=== PATIENT | male | born 1960 | race Caucasian/White ===

== ENCOUNTER 2023-05-07 05:49 | Outpatient (CLI) | payer BC ==
[~2023-05-07] VITALS: Ht 175.3 cm; Wt 80.7 kg
[~2023-05-07 05:49] MED LIST: CALC625T66 PO; GBPN300C PO; HYDR-3583 PO; MULT-963 PO; VITA1CAP59 PO; ZINC50TA49 PO
[2023-05-07] MEDS ORDERED: HYDR-700 PO (13:11)
[2023-05-07] MEDS ORDERED: PSEU-182 PO (13:11)
[2023-05-07] MEDS ORDERED: CETI10CA PO (13:11)
[2023-05-07] MEDS ORDERED: PANT40TA52 PO (13:11)
== END 2023-05-07 13:29 | disposition home or self-care (01) ==
LOC: PREOP 05:49
PROVIDERS: ATTEND Internal Medicine
DX: Z01.818 Encounter for other preprocedural examination (principal)

== ENCOUNTER 2023-05-16 09:07 | Day surgery (SDC) | payer BC, OTHER ==
--- NOTE | 2023-05-03 05:39 | HISTORY AND PHYSICAL ---
PANENDOSCOPY HISTORY AND PHYSICAL HISTORY OF PRESENT ILLNESS: The patient is a 62-year-old white male referred by Dr. العلي for screening colonoscopy. He reports one other colonoscopy a little over 11 years ago, but he believes it was unremarkable. For the past 3-4 months, he has been having increased problems with heartburn despite pantoprazole. He has had some intermittent dysphagia to solids with this and has no past history of EGD evaluation. He reports a history of dry mouth. He does take hydroxyzine for itching of the scalp at night on a regular basis. He reports that he stopped the hydroxyzine, although he substituted Zyrtec while he did this, though he has not been off of the antihistamine therapy. He reports that he had been on hydroxyzine for some time prior to noting dry mouth. He denies any associated dry eye symptoms. While it is worst in the morning, he notes it throughout the day. He has had no sores reported in the oral cavity. Denies change in weight, melena or bright red blood per rectum. He denies any issues with constipation or diarrhea. MEDICATIONS: On admission include hydroxyzine 25 mg at bedtime and pantoprazole 40 mg daily. PAST SURGICAL HISTORY: He has had history of prostatectomy for prostate cancer a number of years ago and hiatal hernia repair. FAMILY HISTORY: He is not aware of any family history for GI tract malignancy. Mother had heart disease and diabetes. SOCIAL HISTORY: He reports no past smoking history and no significant alcohol consumption. and employed. REVIEW OF SYSTEMS: CONSTITUTIONAL: Denies night sweats, chills, fever or change in weight. Does note chronic scalp itching without dandruff. GASTROINTESTINAL: As noted in the HPI. PULMONARY: Denies cough, wheezing or shortness of breath. CARDIOVASCULAR: Denies chest pain, orthopnea, PND, or pedal edema. PHYSICAL EXAMINATION: HEENT: Unremarkable. The patient was chewing gum. Mucous membranes were moist. No oral lesions noted. Tongue was a little bit red without exudates. Dentition good. CHEST: Clear to auscultation. CARDIOVASCULAR: Reveals regular rate and rhythm without murmur, S3, or S4. ABDOMEN: Soft, supple without mass, organomegaly, or tenderness. EXTREMITIES: No cyanosis, clubbing or edema. ASSESSMENT AND PLAN: The patient is being set up for screening colonoscopy as well as diagnostic EGD due to history of reflux with dysphagia, refractory to proton pump inhibitor therapy. Prep instructions were given and questions were answered. The patient is to avoid nonsteroidal medication. In regards to complaints of dry mouth, he was told to hold all antihistamines for 2 weeks. If this continues to be a problem for him despite holding the histamine therapy, he is to return to see Dr. العلي for further investigation. I thank you for the referral of this pleasant gentleman. Job ID: [id number] DocumentID: [id number] Dictated Date: 05/01/2023 14:57:18 Health Care Law Specialist Date: 05/01/2023 15:36:00 Dictated By: JAGJIT HORNER MD
[~2023-05-16] VITALS: Ht 175.3 cm; Wt 80.7 kg
[~2023-05-16 09:07] MED LIST changes: +CETI10CA PO; +HYDR-700 PO; +PANT40TA52 PO; +PSEU-182 PO
--- NOTE | 2023-05-16 09:10 | Pre-Op Note & Conscious Sedat ---
Pre-Operative Progress Note Date H&P Reviewed: May 16, 2023 Time H&P Reviewed: 09:09 History & Physical: H&P Reviewed, Patient Examed, No changes noted Pre-Op Diagnosis: screening colon Gerd with dysphagia Moderate Sedation PreProcedure ASA Score 2 Airway Lungs Heart ASA score ASA 1: a normal healthy patient ASA 2: a patient with a mild systemic disease (mid diabetes, controlled hypertension, obesity ASA 3: a patient with a severe systemic disease that limits activity (angina, COPD, prior Myocardial infarction) ASA 4: a patient with an incapacitating disease that is a constant threat to life (CHF, renal failure) ASA 5: a moribund patient not expected to survive 24 hrs. (ruptured aneurysm) ASA 6: a declared brain- patient whose organs are being harvested. For emergent operations, add the letter E after the classification Mallampati Classification Grade 2 Sedation Plan Analgesia, Amnesia, Plan communicated to team members, Discussed options with patient/fam, Discussed risks with patient/fam The patient is an appropriate candidate to undergo the planned procedure, sedation, and anesthesia. The patient immediately re-assessed prior to indication. JAGJIT HORNER MD May 16, 2023 09:10
[2023-05-16] MEDS ORDERED: HURRICAINE EXT TUBE (BENZOCAINE) XX PRN (09:15)
[2023-05-16] MEDS ORDERED: LACTATED RINGERS 1,000 ML 1,000 ML IV STA (09:15)
[2023-05-16 09:43] VITALS: BP 151/102
[2023-05-16] MEDS ORDERED: MIDAZOLAM INJ 2 MG/2 ML VIAL ONE (09:45)
[2023-05-16 10:25] VITALS: BP 97/60
[2023-05-16 10:30] VITALS: BP 98/62
[2023-05-16 10:35] VITALS: BP 96/61
--- NOTE | 2023-05-16 10:36 | Progress Note-Post Operative ---
Post-Procedure Note Physician (s)/[employer] (s) Physician JAGJIT DE SOUZA MD Pre-Procedure Diagnosis Pre-Procedure Diagnosis: screening colon Gerd with dysphagia Post-Procedure Diagnosis Post-operative diagnosis: The patient was placed in the left lateral decubitus position. The endoscope inserted into the oral cavity and under direct visualization the esophagus was intubated. The scope passed down the esophagus to stomach and second portion of the duodenum. A careful inspection was made as the endoscope was withdrawn. Findings: The posterior pharynx epiglottis arytenoid aperture and true and false vocal folds were unremarkable on gross inspection. The proximal mid esophagus is unremarkable. The lower esophageal sphincter remained widely patent and there was evidence for small hiatal hernia without evidence to suggest Welsh's change rings webs or strictures no evidence for erosive esophagitis was noted. A biopsy was obtained from the Z-line and submitted fresh to pathology. Save for 1 to 2 cm hiatal hernia and 10 fundal appearing polyps no other gastric abnormalities were noted. All fundal polyps or under a centimeter in size the largest 1 about 8 mm was removed in its entirety via cold forceps polypectomy with minimal blood loss. The pylorus pyloric channel duodenal bulb and second portion of the duodenum were unremarkable. A/P 1. 1 to 2 cm hiatal hernia was present with endoscopic findings suggesting lower esophageal sphincter laxity without evidence for erosive esophagitis or stricture formation noticed evidence to suggest Welsh's was noted to gross inspection a biopsy was obtained and submitted for pathology. Patient had approximately 10 subcentimeter fundal appearing polyps largest 1 was removed via cold forceps and sent entirety and submitted for pathology. No other abnormalities noted on today's procedure. We did discuss the importance of not reflux medical management as well as continuing proton pump inhibitor therapy and more careful attention to mastication during eating. We then proceeded with colonoscopy. Prior to undergoing colonoscopy digital rectal evaluation was performed. Anal suture tone was normal and the perianal reflexes intact. No palpable prostatic tissue is noted and there is no evidence for nodularity no other abnormalities noted on digital inspection anal canal distal rectal vault. The colonoscope was then inserted into the rectum and under direct visualization advanced to the cecum. The cecum was identified by the indication of the ileocecal valve cecal strap. Photographic Dr. Rivas obtained. Quality prep was good. Careful inspection was made as the colonoscope withdrawn. Findings: 3 adjacent hyperplastic appearing distal rectal polyps were noted and removed via hot forceps with no blood loss. A 6 cm sessile mid sigmoid polyp was noted it was removed via hot forceps as well. Mild to moderate diverticular disease confined to the sigmoid colon was present without evidence for diverticulitis. A 5 mm distal descending polyp as well as splenic flexure polyp were also removed via hot forceps with no blood loss. The transverse colon hepatic flexure ascending colon and cecum were unremarkable. A/P 1. Multiple polyps as noted above were removed all subcentimeter and most likely hyperplastic as long as there are no surprises on histopathology report and the patient continues to report no family history for colon cancer would just advocate consideration for repeat screening colonoscopy in 10 years. Mild to moderate diverticular disease confined to the sigmoid colon was present without evidence of diverticulitis. 2. Patient did exhibit obstructive breathing and for a while required an oral airway on his side. Would advocate consideration for sleep testing for obstructive sleep apnea I thank you for the furl this pleasant gentleman sincerely Jagjit De Souza MD. CC: Dr. Fidelina العلي DO. JAGJIT DE SOUZA MD May 16, 2023 10:36
[2023-05-16 10:40] VITALS: BP 100/65
[2023-05-16 10:51] VITALS: BP 105/68
--- NOTE | 2023-05-16 12:25 | Anesthesia-General Post-Op ---
MAC Patient Condition Mental Status/LOC: Same as Preop Cardiovascular: Satisfactory Nausea/Vomiting: Absent Respiratory: Satisfactory Pain: Controlled Complications: Absent Post Op Complications Complications None Follow Up Care/Instructions Patient Instructions None needed. Anesthesiology Discharge Order Discharge Order Patient is doing well, no complaints, stable vital signs, no apparent adverse anesthesia problems. No complications reported per nursing. JESUS CUNNINGHAM CRNA May 16, 2023 12:25
== END 2023-05-16 11:35 | disposition home or self-care (01) ==
LOC: ENDO 09:07
PROVIDERS: ATTEND Internal Medicine
DX: Z12.11 Encounter for screening for malignant neoplasm of colon (principal); K44.9 Diaphragmatic hernia without obstruction or gangrene; K31.7 Polyp of stomach and duodenum; K62.1 Rectal polyp; K63.5 Polyp of colon; K21.00 Gastro-esophageal reflux disease with esophagitis, without bleeding; K57.30 Diverticulosis of large intestine without perforation or abscess without bleeding; R68.2 Dry mouth, unspecified; Z85.46 Personal history of malignant neoplasm of prostate